=== PATIENT | female | born 2000 | race Caucasian/White ===

== ENCOUNTER 2019-01-02 19:01 | Emergency (ER) | payer MEDICAID, OTHER ==
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
[2019-01-02] MEDS ORDERED: methylPREDNISolone Acetate 80 MG/ML SDV IM ONE (19:37)
[2019-01-02 20:36] VITALS: BP 117/78
== END 2019-01-02 20:25 | disposition home or self-care (01) ==
LOC: LL.ED 19:01
DX: R07.89 Other chest pain (principal); F41.9 Anxiety disorder, unspecified; R51 Headache; F19.90 Other psychoactive substance use, unspecified, uncomplicated; Z71.6 Tobacco abuse counseling
CPT/HCPCS: 71046; 73030-RT; 96372; 99283-25; J1040